=== PATIENT | male | born 1970 | race Caucasian/White ===

== ENCOUNTER 2019-06-05 07:48 | Day surgery (SDC) | payer OTHER, SELFPAY ==
[2019-06-05] VITALS (8 sets, daily range): BP systolic 122–144; BP diastolic 82–97; PULSE 61–72; RESP 15–18; TEMP 36.2–36.7; O2SAT 92–96; BMI 26.7
[2019-06-05] MEDS: SODIUM CHLORIDE 0.9% 1,000 ML 21 ML IV (08:26)
--- NOTE | 2019-06-05 09:02 | PM.PREOP ---
Pre-operative Note Interval Note History & Physical reviewed/Exam performed by Physician: Yes Changes to H&P: No ASA Class (for procedural sedation): II
--- NOTE | 2019-06-05 09:03 | PM.OP.ENDO ---
Operative Date/Time/Diagnoses Date of procedure: 06/05/19 Time of procedure: 09:03 Pre-op diagnosis: See indication and findings Procedure & Clinicians Study performed: Colonoscopy Same procedure as scheduled: Yes Indications: Screening Surgeon: Allyson Geller Procedure Notes Procedure in detail: AFTER INFORMED CONSENT WAS OBTAINED THE PATIENT WAS PLACED IN LEFT LATERAL DECUBITUS POSITION. THE VIDEO COLONOSCOPE WAS INTRODUCED THE RECTUM SLOWLY ADVANCED TO THE CECUM. ON SLOW WITHDRAWAL MUCOSA WAS CAREFULLY EXAMINED. THE SCOPE WAS REMOVED. THE PATIENT TOLERATED PROCEDURE WELL. Blood loss none Complications none Sedation Total sedation time 28 minutes Fentanyl 150 micro g, Versed 11 mg IV titration Findings 1. Scattered left-sided diverticulosis 2. Otherwise negative colonoscopy to cecum. 3. Difficult sedation. Would suggest anesthesia assistance with next colonoscopy. Patient should have follow-up colonoscopy in 10 years.
--- NOTE | 2019-06-05 09:56 | SUR.OPER ---
TOLERATED FAIRLY WELL VITALS SIGNS STABLE
--- NOTE | 2019-06-05 09:56 | SUR.OPER ---
SHORT PERIOD OF EXTERNAL ABDOMINAL COMPRESSION
[2019-06-05] MEDS: MIDAZOLAM 5 MG/5 ML VIAL IV (09:59)
[2019-06-05] MEDS: fentaNYL 250 MCG/5 ML INJ IV (10:01)
--- NOTE | 2019-06-05 10:07 | SUR.OPER ---
REQUIRED EXTRA SEDATION..TOLERANCE APPEARED MORE
--- NOTE | 2019-06-05 10:22 | SUR.PHASEI ---
Assumed care. VS stable. Pt reported feeling tight but denied pain. Abd mildly firm.
--- NOTE | 2019-06-05 10:45 | SUR.PHASEII ---
pt arrived to phase II via stretcher. pt sitting up in bed, easily arousable to voice when spoken to, vss. IV site clear. abd semi-soft. bed in lowest position and call light given to pt. pt appears comfortable at this time and requesting to rest longer prior to dc.
== END 2019-06-05 11:25 | disposition home or self-care (01) ==
PROVIDERS: PCP Family Medicine; Visit Provider Internal Medicine Gastroenterology
PROC: 0DJD8ZZ Inspection of Lower Intestinal Tract, Via Natural or Artificial Opening Endoscopic (ICD-10-PCS; CPT 45378; principal; 2019-06-05 09:30)
DX: Z12.11 Encounter for screening for malignant neoplasm of colon (principal); K57.30 Diverticulosis of large intestine without perforation or abscess without bleeding; E78.00 Pure hypercholesterolemia, unspecified; E55.9 Vitamin D deficiency, unspecified
CPT/HCPCS: G0121; J2250; J3010

== ENCOUNTER 2021-08-21 18:24 | Emergency (ER) | payer OTHER, SELFPAY ==
[2021-08-21 18:35] VITALS: BP 154/93; PULSE 86; RESP 14; TEMP 36.2; O2SAT 94; BMI 28.5
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
[2021-08-21] MEDS: KETOROLAC 30 MG/ML VIAL IM (19:48)
[2021-08-21 19:56] VITALS: BP 130/75; PULSE 75; O2SAT 99
== END 2021-08-21 19:57 | disposition home or self-care (01) ==
PROVIDERS: Emergency Provider Physician Assistant; PCP Family Medicine
DX: M79.651 Pain in right thigh (principal); V19.9XXA Pedal cyclist (driver) (passenger) injured in unspecified traffic accident, initial encounter
CPT/HCPCS: 96372; 99283; J1885

== ENCOUNTER → 2023-06-28 17:02 | Outpatient (CLI) | payer OTHER, SELFPAY ==
--- NOTE | 2023-06-28 17:06 | DI.MRI.S_ITS ---
PROCEDURE: MR LUMBAR SPINE WO CON INDICATIONS: Radiculopathy, lumbar region TECHNIQUE: Noncontrast sagittal T1 spin echo and T2 fast echo, sagittal STIR, and T2 fast spin echo through the lumbar spine. In cases with scoliosis, additional coronal T2 fast spin echo may be performed. COMPARISON: None. FINDINGS: Image quality: Excellent. Alignment and Curvature: There is normal bony alignment. Bone Marrow: Marrow is of normal overall signal. No acute vertebral body compression fractures. Spinal Cord: Conus medullaris terminates at the L1 level. Visualized cord demonstrates normal signal and size. Paraspinous Soft Tissues: No paravertebral masses. T12-L1: Mild disc desiccation and height loss. No canal stenosis. No foraminal stenosis. L1-L2: Mild disc desiccation and height loss. No canal stenosis. No foraminal stenosis. L2-L3: Mild disc desiccation and height loss. Broad-based disc bulge. Mild facet ligamentum flavum hypertrophy. No canal stenosis. Moderate bilateral foraminal narrowing. L3-L4: Mild disc desiccation and height loss. Broad-based disc bulge. Mild facet ligamentum flavum hypertrophy. No canal stenosis. Moderate right and mild left foraminal narrowing. L4-L5: Mild disc desiccation and height loss. Broad-based disc bulge. Moderate facet ligamentum flavum hypertrophy. Moderate canal stenosis. Mild bilateral foraminal stenosis. L5-S1: Mild disc desiccation and height loss. Mild facet sclerosis. No foraminal stenosis. IMPRESSION: 1. Mild multilevel disc desiccation and height loss. 2. Broad-based disc bulge and facet ligamentum flavum hypertrophy at L4-5 with resultant moderate canal stenosis. 3. Moderate bilateral L2-3 and moderate right L3-4 foraminal stenosis. Dictated by: Estephania Duffy M.D. on 06/29/2023 at 10:47 Approved by: Estephania Duffy M.D. on 06/29/2023 at 10:53
== END ==
PROVIDERS: PCP Family Medicine; Referring Provider Family Medicine; Visit Provider Family Medicine
DX: M51.16 Intervertebral disc disorders with radiculopathy, lumbar region (principal); M48.061 Spinal stenosis, lumbar region without neurogenic claudication
CPT/HCPCS: 72148

== ENCOUNTER → 2024-11-07 11:25 | Outpatient (CLI) | payer OTHER, SELFPAY ==
--- NOTE | 2024-11-07 11:43 | EKG_ITS ---
[facility] [address] [address] Test Date: 2024-11-07 Pat Name: Andrea Maguire Department: [facility] Room: Gender: Male [employer]: JOSLYN : 1970 Requested By: Order Number: [id number] Reading MD: José Antonio Fisher MD Measurements Intervals [place] Rate: 69 P: 16 AK: 202 QRS: -16 QRSD: 86 T: 11 QT: 390 QTc: 417 Interpretive Statements Normal sinus rhythm Electronically Signed On 11-07-2024 11:57:47 PST by José Antonio Fisher MD
[2024-11-07 12:11] LABS: Add Manual Diff / Slide Review NO; Basophils Absolute Auto 0 /uL (0-100); Eosinophils Absolute Auto 100 /uL (0-450); Eosinophils Percent Auto 2.5 % (2-4); Hematocrit 42.9 % (41-53); Hemoglobin 14.4 g/dL (13.5-17.5); Lymphocytes Absolute Auto 1400 /uL (1100-4500); Lymphocytes Percent Auto 29.6 % (25-40); Mean Corpuscular HGB Conc 33.6 % (30-36); Mean Corpuscular Hemoglobin 31.8 PG (26-34); Mean Corpuscular Volume 94.7 fL (80-100); Monocytes Absolute Auto 700 /uL (0-900); Monocytes Percent Auto 13.9 % (3-14); Neutrophils Absolute Auto 2500 /uL (1500-7000); Platelet Count 221 X10^3/uL (150-400); Red Blood Cell Count 4.52 X10^6/uL (4.5-5.9); Red Cell Distribution Width 13.1 % (11.6-14.8); White Blood Cell Count 4.7 X10^3/uL (4.5-11.0)
[2024-11-07 12:19] LABS: Hemoglobin A1C% w Est Avg Glu 5.4 % (4.0-6.0)
[2024-11-07 12:34] LABS: Albumin 4.4 g/dL (3.5-5.0); BUN Creatinine Ratio 18.6 (6-22); Blood Urea Nitrogen 18 mg/dL (9-20); Calcium 9.1 mg/dL (8.4-10.2); Carbon Dioxide 26 mmol/L (22-32); Chloride 106 mmol/L (98-107); Estimated Glomerular Filt Rate > 60 mL/min (>60); Glucose 86 mg/dL (70-100); HEMOLYSIS < 15 (0-50); Potassium 4.5 mmol/L (3.4-5.1); Sodium 139 mmol/L (137-145)
[2024-11-07 12:42] LABS: Prealbumin 34.7 mg/dL (17.6-36.0)
[2024-11-07 16:35] LABS: Vitamin D 25 Hydroxy (D3) 18.1 ng/mL (30.0-100.0)
== END ==
PROVIDERS: PCP Family Medicine; Referring Provider Orthopaedic Surgery Adult Reconstructive Orthopaedic Surgery; Visit Provider Orthopaedic Surgery Adult Reconstructive Orthopaedic Surgery
DX: Z01.818 Encounter for other preprocedural examination (principal); R77.0 Abnormality of albumin; E55.9 Vitamin D deficiency, unspecified; R73.9 Hyperglycemia, unspecified; Z01.812 Encounter for preprocedural laboratory examination
CPT/HCPCS: 36415; 80048; 82040; 82306; 83036; 84134; 85025; 93005; 93010